=== PATIENT | male | born 1970 | race Caucasian/White ===

== ENCOUNTER 2023-11-17 12:54 | Emergency (ER) | payer BC, SELFPAY ==
[2023-11-17 12:55] VITALS: BP 168/94
[2023-11-17 13:29] VITALS: BMI 32.9
--- NOTE | 2023-11-17 13:40 | ED.GENMED ---
History of Present Illness
<Neel Park Jr., PA-C - Last Filed: 11/18/23 09:13>
General
Chief Complaint: Swelling
Source: patient
Exam Limitations: none
Time Seen by Provider: 11/17/23 13:29
Nursing documentation reviewed up to this point in time: agreed with
Travel History
Have you had any contact with someone who has COVID-19?: No
Do you have any symptoms of coronavirus? Fever > 100 degrees, chills, cough, shortness of breath, sore throat, loss of taste or smell, muscle aches, or headache?: No
History of Present Illness
History of Present Illness:
53-year-old male with physical history of right-sided knee replacement 6 months ago presenting to the emergency department today with concerns of a week of worsening right-sided knee swelling and lower extremity swelling. Was seen at [facility] today
and x-ray without emergent findings was sent to the ER for further assessment. Denies any chest pain shortness breath or any history of blood clots. Is able to range his knee to about 30 degrees before increasing discomfort. No fevers.
Review of Systems
<Neel Park Jr., PA-C - Last Filed: 11/18/23 09:13>
Review of Systems
Allergies reviewed?: Yes
All Other Systems: ROS reviewed and negative except as documented in HPI and ROS
Phy Exam
<Neel Park Jr., PA-C - Last Filed: 11/18/23 09:13>
Physical Exam
Physical Exam:
GENERAL: Alert , in no apparent distress
EYE: pupils equal and reactive
NECK: Supple, no significant adenopathy.
ENT: o/p clr, mmm.
CARDIAC: Regular rate and rhythm .
LUNGS: Clear breath sounds bilaterally, no acute respiratory distress, no wheezes/rales/rhonchi
ABDOMEN: Soft, without focal tenderness, no r/g, no cvat
NEUROLOGICAL: Alert and oriented, no focal neuro deficits
SKIN: Warm and dry, skin intact.
MUSCULOSKELETAL: Significant swelling to the area of the right knee to the area anterior to the right knee and also tracking into the morrow with some redness and warmth mild tenderness to palpation. No fluctuance or induration, well perfused.
PSYCH: Normal and appropriate interaction.
Scores
<Yordy Griffin PA-C - Last Filed: 11/17/23 16:28>
Heart Failure Risk
Heart Failure Risk Score: Not Applicable
Course
<Neel Park Jr., PA-C - Last Filed: 11/18/23 09:13>
Orders/Labs/Results
Orders:
Orders
11/17/23 13:39
Venous Doppler Lwr Ext Rt [US Periph Venous LOWER Ext RT] Urgent
Comment:
Reason For Exam: leg swelling pain
11/17/23 13:44
BMP [Basic Metabolic Panel] Urgent
CBC/With Diff [Complete Blood Count/With Diff] Urgent
CRP [C-Reactive Protein] Urgent
ESR [Erythrocyte Sed Rate] Urgent
Abnormal Lab Results
11/17/23
13:44
WBC 4.6 L 10^3/uL
(4.8-10.8)
RBC 4.59 L 10^6/uL
(4.70-6.10)
Hgb 10.4 L g/dL
(13.0-18.0)
Hct 32.4 L %
(39.0-52.0)
MCV 70.6 L fL
(80.0-94.0)
MCH 22.7 L pg
(27.0-31.0)
MCHC 32.1 L g/dL
(33.0-37.0)
RDW 14.7 H %
(11.5-14.5)
Absolute Lymphs (auto) 0.7 L 10^3/uL
(1.2-3.4)
Lymphocytes % 15.6 L %
(20.5-51.1)
Monocytes % 10.4 H %
(1.7-9.3)
ESR 38 H mm/hour
(0-20)
BUN 24 H mg/dl
(9-20)
Creatinine 0.5 L mg/dL
(0.7-1.3)
Glucose 119 H mg/dl
(70-99)
C-Reactive Protein 26.90 H mg/L
(0.0-10.00)
11/17/23 13:44
11/17/23 13:44
Vital Signs
Initial and Last Documented VS:
Initial Vital Signs
Temp Pulse Resp BP Pulse Ox
98.1 F 103 20 168/94 99
11/17/23 12:55 11/17/23 12:55 11/17/23 12:55 11/17/23 12:55 11/17/23 12:55
Last Documented Vital Signs
Temp Pulse Resp BP Pulse Ox
98.1 F 74 16 141/78 99
11/17/23 12:55 11/17/23 16:11 11/17/23 16:11 11/17/23 16:11 11/17/23 16:11
<Yordy Griffin PA-C - Last Filed: 11/17/23 16:28>
Orders/Labs/Results
Orders:
Orders
11/17/23 13:39
Venous Doppler Lwr Ext Rt [US Periph Venous LOWER Ext RT] Urgent
Comment:
Reason For Exam: leg swelling pain
11/17/23 13:44
BMP [Basic Metabolic Panel] Urgent
CBC/With Diff [Complete Blood Count/With Diff] Urgent
CRP [C-Reactive Protein] Urgent
ESR [Erythrocyte Sed Rate] Urgent
Abnormal Lab Results
11/17/23
13:44
WBC 4.6 L 10^3/uL
(4.8-10.8)
RBC 4.59 L 10^6/uL
(4.70-6.10)
Hgb 10.4 L g/dL
(13.0-18.0)
Hct 32.4 L %
(39.0-52.0)
MCV 70.6 L fL
(80.0-94.0)
MCH 22.7 L pg
(27.0-31.0)
MCHC 32.1 L g/dL
(33.0-37.0)
RDW 14.7 H %
(11.5-14.5)
Absolute Lymphs (auto) 0.7 L 10^3/uL
(1.2-3.4)
Lymphocytes % 15.6 L %
(20.5-51.1)
Monocytes % 10.4 H %
(1.7-9.3)
ESR 38 H mm/hour
(0-20)
BUN 24 H mg/dl
(9-20)
Creatinine 0.5 L mg/dL
(0.7-1.3)
Glucose 119 H mg/dl
(70-99)
C-Reactive Protein 26.90 H mg/L
(0.0-10.00)
11/17/23 13:44
11/17/23 13:44
Vital Signs
Initial and Last Documented VS:
Initial Vital Signs
Temp Pulse Resp BP Pulse Ox
98.1 F 103 20 168/94 99
11/17/23 12:55 11/17/23 12:55 11/17/23 12:55 11/17/23 12:55 11/17/23 12:55
Last Documented Vital Signs
Temp Pulse Resp BP Pulse Ox
98.1 F 74 16 141/78 99
11/17/23 12:55 11/17/23 16:11 11/17/23 16:11 11/17/23 16:11 11/17/23 16:11
<Neel Park Jr., PA-C - Last Filed: 11/18/23 09:13>
MDM/Problems Addressed
MDM/Problems Addressed:
53-year-old male presenting to the emergency department today with concerns of right knee swelling progressing into the morrow over the past week or so. Had a total knee replacement 6 months ago. Went to [facility] earlier today had an x-ray which was
normal and was sent to the ER for further assessment. Patient does have significant swelling to the knee and to the proximal morrow anteriorly very minimal tenderness no fluctuance or induration able to range the knee to about 45 degrees without
significant acute pain. Case was discussed with orthopedics that recommended doing the ultrasound for assessment for DVT. Otherwise patient's 2 consecutive week's symptoms make it unlikely be acute infectious process additionally patient has good
range of motion advised as long as is not acutely ill to follow-up closely for initial evaluation of this. Patient does have a scheduled appointment this upcoming week for further assessment.
<Yordy Griffin PA-C - Last Filed: 11/17/23 16:28>
*Critical Care Note
Total Time (30-74mins, 75-104mins- exclusive of procedures): Not Applicable
<Yordy Griffin PA-C - Last Filed: 11/17/23 16:28>
Update Note
Update Note:
Assumed care of this patient from Rgeis Park PA-C, at shift change 1500. Awaiting DVT study.
7330: DVT study negative. Case reviewed with Ortho to confirm follow up plan. Pt will see Ortho next Monday for knee aspiration and Synovasure analysis. At this time with no systemic symptoms, no indication for admission/abx.
ED Attending Note
<Neel Park Jr., PA-C - Last Filed: 11/18/23 09:13>
-
Portions of this chart may have been created with voice recognition software.� Occasional wrong word or��sound alike� substitutions may have occurred due to the inherent limitations of voice recognition software.
Discharge Plan
Departure
Patient Disposition: Home (Routine Discharge)
Date of Disposition: 11/17/23
Time of Disposition: 16:05
Patient with high blood pressure during this ER visit?: No
Discharge Problem:
Right leg swelling, Suspected prosthetic joint infection
Prescriptions:
New
oxycodone 5 mg tablet
5 mg PO TID PRN (Reason: Pain) Qty: 12 0RF
Referrals:
Carlton Valles MD [Family Provider] -
Activity Restrictions/Additional Instructions:
Follow up with Dr Mulligan next week as planned
Interventions
Interventions:
*Risk Screen - Suicide Last Done: 11/17/23 12:55
*General Assessment Last Done: 11/17/23 12:55
*Neglect/Abuse Screening Last Done: 11/17/23 12:55
ED- Fall Risk Assessment Last Done: 11/17/23 13:31
*ED COVID-19 Vaccine History Last Done: 11/17/23 13:24
*Nursing Disposition Last Done: 11/17/23 16:11
ED- Cardiac Assessment Last Done: 11/17/23 13:31
ED- Pulmonary Assessment Last Done: 11/17/23 13:31
ED-Skin Assessment Last Done: 11/17/23 13:31
Discharge Date and Time
Discharge Date/Time: 11/17/23 16:17
Print Language: LITHUANIAN
[2023-11-17 13:53] LABS: % Basophils 0.4 % (0-2); % Eosinophils 1.1 % (0-6); % Immature Granulocytes 0.2 % (0-0.5); % Lymphocytes 15.6 % (20.5-51.1); % Monocytes 10.4 % (1.7-9.3); % Neutrophils 72.3 % (42.2-75.2); Absolute Eosinophils 0.1 10^3/uL (0-0.7); Absolute Lymphocytes 0.7 10^3/uL (1.2-3.4); Absolute Monocytes 0.5 10^3/uL (0.1-0.6); Absolute Neutrophils 3.3 10^3/uL (1.4-6.5); Hematocrit 32.4 % (39.0-52.0); Hemoglobin 10.4 g/dL (13.0-18.0); Mean Corp Hgb Conc. 32.1 g/dL (33.0-37.0); Mean Corpuscular Hgb 22.7 pg (27.0-31.0); Mean Corpuscular Volume 70.6 fL (80.0-94.0); Mean Platelet Volume 10.1 fL (7.4-10.4); Nucleated Red Blood Cells % 0 % (-); Platelet Count 196 10^3/uL (130-400); Red Blood Cell Count 4.59 10^6/uL (4.70-6.10); Red Cell Dist. Width 14.7 % (11.5-14.5); White Blood Cell Count 4.6 10^3/uL (4.8-10.8)
[2023-11-17 14:13] LABS: Blood Urea Nitrogen 24 mg/dl (9-20); Glucose 119 mg/dl (70-99); Potassium 3.8 mmol/L (3.5-5.1); Sodium 138 mmol/L (135-145)
[2023-11-17 14:34] LABS: Carbon Dioxide 25 mmol/L (22-30); Chloride 103 mmol/L (98-107); Estimated Creatinine Clearance > 125 ml/min; eGFR > 60.00
[2023-11-17 14:36] LABS: Erythrocyte Sed Rate 38 mm/hour (0-20)
[2023-11-17 14:50] VITALS: BP 137/84
[2023-11-17 16:11] VITALS: BP 141/78
== END 2023-11-17 16:17 | disposition home or self-care (01) ==
LOC: EMR 12:54
PROVIDERS: Physician Assistant; EMERGENCY PHYSICIAN Emergency Medicine; FAMILY PHYSICIAN Internal Medicine
DX: M79.89 Other specified soft tissue disorders (principal); M79.604 Pain in right leg; I10 Essential (primary) hypertension; Z96.651 Presence of right artificial knee joint
CPT/HCPCS: 99284; 80048; 85025; 85652; 86140; 93971

== ENCOUNTER → 2024-06-28 16:07 | Outpatient (REF) | payer BC, SELFPAY | LOC: RAD 16:07 | PROVIDERS: ATTENDING PHYSICIAN Physician Assistant; FAMILY PHYSICIAN Internal Medicine | DX: E04.1 Nontoxic single thyroid nodule (principal) | CPT/HCPCS: 76536 ==